=== PATIENT | female | born 1970 | race Caucasian/White ===

== ENCOUNTER → 2024-03-18 15:29 | Outpatient (REF) | payer BC, SELFPAY | LOC: HWWDC 15:29 | PROVIDERS: ATTENDING PHYSICIAN Obstetrics & Gynecology Gynecology; FAMILY PHYSICIAN Family Medicine | DX: Z12.31 Encounter for screening mammogram for malignant neoplasm of breast (principal) | CPT/HCPCS: 77063; 77067 ==

== ENCOUNTER 2024-07-10 11:44 | Emergency (ER) | payer BC, SELFPAY ==
[2024-07-10 11:52] VITALS: BP 135/94
[2024-07-10 12:05] VITALS: BMI 25.0
--- NOTE | 2024-07-10 13:27 | ED.GENMED ---
History of Present Illness
<SONJA Calvert - Last Filed: 07/10/24 15:18>
General
Chief Complaint: Musculo-Skeletal Complaint
Source: patient
Exam Limitations: none
Time Seen by Provider: 07/10/24 12:52
Nursing documentation reviewed up to this point in time: agreed with
History of Present Illness
History of Present Illness:
53 yr old female presents to the ER for evaluation of neck pain. Patient reports she was holding her 1-year-old granddaughter Friday night and morning woke up with pain in her neck. She reports pain was worse with movement and lifting
neck up and down turning [id number]. She has been having pain with swallowing. She describes feeling pain in the back of her neck when she swallows hard. Because of this pain she is having she has not been drinking fluids and feels very
dehydrated. She did see a chiropractor today and had an adjustment and was sent here for evaluation. She reports she can barely move her neck without discomfort. She did take ibuprofen earlier today. She did feel slight tingling in her bilateral
hands but denies any weakness. She has no headache blurry vision.
Review of Systems
<SONJA Calvert - Last Filed: 07/10/24 15:18>
Review of Systems
Allergies reviewed?: Yes
All Other Systems: ROS reviewed and negative except as documented in HPI and ROS
Constitutional: Reports no symptoms
Respiratory: Reports no symptoms
Cardiac: Reports no symptoms
ABD/GI: Reports no symptoms
Musculoskeletal: Reports neck pain
Skin: Reports no symptoms
Neurological: Reports no symptoms
Psychiatric: Reports no symptoms
Phy Exam
<SONJA Calvert - Last Filed: 07/10/24 15:18>
General Physical Exam
General Presentation: no apparent distress
General age: appears stated age
General Skin: warm and dry
General Habitus: normal
General Mental: alert
General Hydration: appears well hydrated
Neurological Exam
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
Musculoskeletal Exam
Musculoskeletal Exam: full ROM and other (Patient tender throughout the posterior cervical muscles holding neck very still unable to move neck without pain )
Skin Exam
Skin Exam: normal color and warm/dry
Course
<SONJA Calvert - Last Filed: 07/10/24 15:18>
Orders/Labs/Results
Orders:
Orders
07/10/24 13:26
IV Insert/Care/Rem.- Treatment PRN
0.9% Sodium Chloride 1000 ml [Nss] 1,000 ml IV BOLUS
Ketorolac [Toradol] 15 mg IV NOW STA
diazePAM [Valium Injection] 2 mg IV NOW STA
07/10/24 13:50
Complete Blood Count/With Diff Urgent
Comprehensive Metabolic Panel Urgent
07/10/24 14:40
CT Neck With Iv Contrast Urgent
Comment:
Reason For Exam: neck pain
07/10/24 16:21
Morphine Sulfate 4 mg IV NOW STA
07/10/24 17:49
NSS 1000mL Bolus over 1 hr 0.9% Sodium Chloride 1000 ml [Nss] 1,000 ml IV BOLUS
diazePAM [Valium Injection] 5 mg IV NOW STA
Abnormal Lab Results
07/10/24
13:50
WBC 15.8 H 10^3/uL
(4.8-10.8)
Absolute Neuts (auto) 13.6 H 10^3/uL
(1.4-6.5)
Absolute Monos (auto) 0.8 H 10^3/uL
(0.1-0.6)
Neutrophils % 85.9 H %
(42.2-75.2)
Lymphocytes % 8.3 L %
(20.5-51.1)
07/10/24 13:50
07/10/24 13:50
Vital Signs
Initial and Last Documented VS:
Initial Vital Signs
Temp Pulse Resp BP Pulse Ox
98.2 F 85 16 135/94 98
07/10/24 11:52 07/10/24 11:52 07/10/24 11:52 07/10/24 11:52 07/10/24 11:52
Last Documented Vital Signs
Temp Pulse Resp BP Pulse Ox
98.2 F 85 16 135/94 98
07/10/24 11:52 07/10/24 11:52 07/10/24 11:52 07/10/24 11:52 07/10/24 11:52
<Marino Song, DO - Last Filed: 07/10/24 17:56>
Orders/Labs/Results
Orders:
Orders
07/10/24 13:26
IV Insert/Care/Rem.- Treatment PRN
0.9% Sodium Chloride 1000 ml [Nss] 1,000 ml IV BOLUS
Ketorolac [Toradol] 15 mg IV NOW STA
diazePAM [Valium Injection] 2 mg IV NOW STA
07/10/24 13:50
Complete Blood Count/With Diff Urgent
Comprehensive Metabolic Panel Urgent
07/10/24 14:40
CT Neck With Iv Contrast Urgent
Comment:
Reason For Exam: neck pain
07/10/24 16:21
Morphine Sulfate 4 mg IV NOW STA
07/10/24 17:49
NSS 1000mL Bolus over 1 hr 0.9% Sodium Chloride 1000 ml [Nss] 1,000 ml IV BOLUS
diazePAM [Valium Injection] 5 mg IV NOW STA
Abnormal Lab Results
07/10/24
13:50
WBC 15.8 H 10^3/uL
(4.8-10.8)
Absolute Neuts (auto) 13.6 H 10^3/uL
(1.4-6.5)
Absolute Monos (auto) 0.8 H 10^3/uL
(0.1-0.6)
Neutrophils % 85.9 H %
(42.2-75.2)
Lymphocytes % 8.3 L %
(20.5-51.1)
07/10/24 13:50
07/10/24 13:50
Vital Signs
Initial and Last Documented VS:
Initial Vital Signs
Temp Pulse Resp BP Pulse Ox
98.2 F 85 16 135/94 98
07/10/24 11:52 07/10/24 11:52 07/10/24 11:52 07/10/24 11:52 07/10/24 11:52
Last Documented Vital Signs
Temp Pulse Resp BP Pulse Ox
98.2 F 85 16 135/94 98
07/10/24 11:52 07/10/24 11:52 07/10/24 11:52 07/10/24 11:52 07/10/24 11:52
<SONJA Calvert - Last Filed: 07/10/24 15:18>
MDM/Problems Addressed
MDM/Problems Addressed:
Patient is a 53-year-old female who presents to the ER complaining of neck pain for the past several days worse with movement. Patient did see a chiropractor today however sent for possible torticollis. Patient c /o of however of increased pain
with swallowing and because of this has not been drinking. She appears uncomfortable on exam. She denies any recent illness fever chills she denies sensation that her throat is physically sore. She denies any weakness in upper extremities. IV
line was placed will hydrate since she has not been drinking fluids patient was given Valium and Toradol. wbc minimally elevated,nml chemistries. eval by DR Song will order ct neck
1520: Care of patient at this time transferred to Dr. Song
<Marino Song DO - Last Filed: 07/10/24 17:56>
Update Note
Update Note:
5:[address] is negative for acute pathology. On reassessment, patient states her neck is feeling better but she still has pain when she swallows. She states the back of her neck spasms every time she tries to swallow. Based on her difficulty with
swallowing and p.o. intake, I did offer admission. Patient acknowledges my concern but states she wants to go home. Will give a second liter of fluid and more Valium
ED Attending Note
<SONJA Calvert - Last Filed: 07/10/24 15:18>
-
Portions of this chart may have been created with voice recognition software.� Occasional wrong word or��sound alike� substitutions may have occurred due to the inherent limitations of voice recognition software.
<Marino Song DO - Last Filed: 07/10/24 17:56>
ED Attending Note
Patient seen and examined by attending physician: Yes
I performed the substantive portion of visit, reviewed & personally made and approve the management plan that is documented in note by myself or JUANA.: Yes
ED Attending Note:
I have seen and evaluated the patient with a [id number] encounter. I have spoken to the advance practicer provider and involved in the medical history, the physical exam, medical decision making.
Evaluation and management service: agree unless noted differently below.
Results interpretation: agree unless noted differently below.
Focused HPI: 53-year-old female presenting with worsening neck pain over the past several days. She saw her chiropractor but states it did not help too much. She was instructed to go to urgent care for steroids and pain control. Patient decided
to go to the emergency department. She denies fevers or rash
Physical exam: Posterior cervical muscle spasm. No midline tenderness. No tenderness to carotid. Dry mucous membranes
Medical Decision Making: Given duration of symptoms without fever, doubt bacterial meningitis. Will obtain CT neck to rule out any deep space infection. Patient given IV fluids for dehydration and Valium for spasm
Discharge Plan
Departure
Patient Disposition: Home (Routine Discharge)
Date of Disposition: 07/10/24
Time of Disposition: 17:51
Patient with high blood pressure during this ER visit?: No
Discharge Problem:
Neck muscle spasm
Prescriptions:
New
diclofenac potassium 50 mg tablet
50 mg PO BID Qty: 20 0RF
oxycodone 5 mg tablet
5 mg PO Q8H PRN (Reason: Pain) Qty: 14 0RF
diazepam [Valium] 5 mg tablet
5 mg PO BID PRN (Reason: muscle spasm) Qty: 14 0RF
Referrals:
Jazmín Sanchez CRNP [Family Provider] -
Mynor Cordero MD [Active] -
Activity Restrictions/Additional Instructions:
Please return for any worsening symptoms.
You may return at any time if you have further concerns.
Please follow up with your doctor at the first available appointment, preferably this week.
Please make an appointment to see the ENT.
Thank you for choosing [facility].
Interventions
Interventions:
*Risk Screen - Suicide Last Done: 07/10/24 11:52
*General Assessment Last Done: 07/10/24 12:04
*Neglect/Abuse Screening Last Done: 07/10/24 11:52
ED- Fall Risk Assessment Last Done: 07/10/24 12:05
*ED COVID-19 Vaccine History Last Done: 07/10/24 12:04
ED-Musculoskeletal Assessment Last Done: 07/10/24 12:06
Discharge Date and Time
Print Language: AMHARIC
[2024-07-10] MEDS: NSS 1000 IV ×2 (13:41→17:57)
[2024-07-10] MEDS: TORADOL 15 MG IV (13:41)
[2024-07-10] MEDS: VALIUM INJECTION 2 MG IV (13:41)
[2024-07-10 14:01] LABS: % Basophils 0.4 % (0-2); % Eosinophils 0.3 % (0-6); % Immature Granulocytes 0.3 % (0-0.5); % Lymphocytes 8.3 % (20.5-51.1); % Monocytes 4.8 % (1.7-9.3); % Neutrophils 85.9 % (42.2-75.2); Absolute Basophils 0.1 10^3/uL (0-0.2); Absolute Eosinophils 0.1 10^3/uL (0-0.7); Absolute Lymphocytes 1.3 10^3/uL (1.2-3.4); Absolute Monocytes 0.8 10^3/uL (0.1-0.6); Absolute Neutrophils 13.6 10^3/uL (1.4-6.5); Hematocrit 40.2 % (37.0-47.0); Hemoglobin 13.7 g/dL (12.0-16.0); Mean Corp Hgb Conc. 34.1 g/dL (33.0-37.0); Mean Corpuscular Hgb 30.3 pg (27.0-31.0); Mean Corpuscular Volume 88.9 fL (81.0-99.0); Mean Platelet Volume 8.8 fL (7.4-10.4); Nucleated Red Blood Cells % 0 %; Platelet Count 326 10^3/uL (130-400); Red Blood Cell Count 4.52 10^6/uL (4.20-5.40); Red Cell Dist. Width 11.7 % (11.5-14.5); White Blood Cell Count 15.8 10^3/uL (4.8-10.8)
[2024-07-10 14:11] LABS: ALT (SGPT) 13 U/L (0-35); AST (SGOT) 17 U/L (14-36); Albumin 4.3 g/dl (3.5-5.0); Alkaline Phosphatase 87 U/L (38-126); Blood Urea Nitrogen 11 mg/dl (7-17); Calcium 8.7 mg/dl (8.4-10.2); Carbon Dioxide 23 mmol/L (22-30); Chloride 104 mmol/L (98-107); Estimated Creatinine Clearance 102 ml/min; Glucose 85 mg/dl (70-99); Potassium 3.6 mmol/L (3.5-5.1); Sodium 138 mmol/L (135-145); Total Bilirubin 0.5 mg/dl (0.2-1.3); Total Protein 7.2 g/dl (6.3-8.2); eGFR > 60.00
[2024-07-10] MEDS: MORPHINE SULFATE 4 MG IV (16:25)
[2024-07-10 17:52] VITALS: BP 130/88
[2024-07-10] MEDS: VALIUM INJECTION 5 MG IV (17:59)
== END 2024-07-10 19:56 | disposition home or self-care (01) ==
LOC: EMR 11:44
PROVIDERS: Nurse Practitioner; EMERGENCY PHYSICIAN Student in an Organized Health Care Education/Training Program; FAMILY PHYSICIAN Nurse Practitioner Family
DX: M62.838 Other muscle spasm (principal); M54.2 Cervicalgia; R20.2 Paresthesia of skin
CPT/HCPCS: 96374; 96375; 96376; 96361; 99284; 70491; 80053; 85025; Q9967